=== PATIENT | male | born 1995 | race African-American/Black ===

== ENCOUNTER 2017-11-26 18:19 | Emergency (ER) | payer SELFPAY ==
[~2017-11-26] VITALS: Ht 170.2 cm; Wt 144.0 kg
[2017-11-26 18:22] VITALS: BP 136/79
[2017-11-26 21:28] LABS: BASOPHILS % 0.6 % (0.0-2.0); EOSINOPHILS % 0.6 % (0.0-5.0); HEMATOCRIT. 45.2 % (42.0-52.0); HEMOGLOBIN. 14.8 g/dL (14.0-18.0); LYMPHOCYTES % 17.5 % (20.0-50.0); MEAN CORPUSCULAR HEMOGLOBIN 26.8 pg (28.0-32.0); MEAN CORPUSCULAR VOLUME 82.2 fL (80.0-94.0); MEAN PLATELET VOLUME 8.6 fl (7.4-10.4); MONOCYTES % 6.8 % (2.0-8.0); NEUTROPHILS % 74.5 % (40.0-76.0); PLATELET 216 x1000/uL (130-400); RED CELL DISTRIBUTION WIDTH 16.1 % (11.6-14.6)
[2017-11-26 21:37] LABS: CARBON DIOXIDE 30 mEq/L (21-32); CHLORIDE 102 mEq/L (98-107)
[2017-11-26 21:43] LABS: TROPONIN I < 0.02 ng/mL (0.00-0.04)
== END 2017-11-26 23:10 | disposition home or self-care (01) ==
LOC: ER 18:28
DX: F41.1 Generalized anxiety disorder (principal); R00.2 Palpitations; R94.6 Abnormal results of thyroid function studies
CPT/HCPCS: 36415; 71010; 80053; 84443; 84484; 85025; 99285